=== PATIENT | male | born 1965 | race Asian ===

== ENCOUNTER 2016-04-28 19:08 | Emergency (ER) | payer BC ==
--- NOTE | 2016-04-28 19:29 | ED Physician Chart ---
Chief Complaint/HPI - Patient Information Date Seen:: 04/28/16 Time Seen:: 19:21 Chief Complaint:: SHORTNESS OF BREATH History of Present Illness:: THIS IS A 51 YO MALE WITH 90 DAYS OF COUGH, CHEST CONGESTION AND WAS TREATED FOR PNEUMONIA 10 DAYS AGO AND FINISH ALL THE ANTIBIOTICS(KEFLEX). HE HAS HAD SOME FEVER AND THE CONGESTION HAS CONTINUED WITH SOB. HE DENIES HEART DISEASE AND HYPERTENSION BUT ADMITS TO DIABETES MELLITUS. THE PATIENT ADMITS TO SMOKING BUT DENIES DRUG ABUSE. Historian:: Patient Review:: Nurse's Note Reviewed Review of Systems - Review of Systems General/Constitutional: Fever, No chills, No weight loss, No weakness, No diaphoresis, No edema, No loss of appetite Skin: No skin lesions, No rash, No bruising Head: No headache, No light-headedness Eyes: No loss of vision, No pain, No diplopia ENT: No earache, No nasal drainage, No sore throat, No tinnitus Neck: No neck pain, No swelling, No thyromegaly, No stiffness, No mass noted Cardio Vascular: No chest pain, No palpitations, No PND, No orthopnea, No edema Pulmonary: SOB, Cough, No sputum, Wheezing GI: No nausea, No vomiting, No diarrhea, No pain, No melena, No hematochezia, No constipation, No hematemesis G/U: No dysuria, No frequency, No hematuria Musculoskeletal: No bone or joint pain, No back pain, No muscle pain Endocrine: No polyuria, No polydipsia Psychiatric: No prior psych history, No depression, No anxiety, No suicidal ideation Hematopoietic: No bruising, No lymphadenopathy Allergic/Immuno: No urticaria, No angioedema Neurological: No syncope, No focal symptoms, No weakness, No paresthesia, No headache, No seizure, No dizziness, No confusion, No vertigo Past Medical History - Past Medical History Obtainable: Yes Past Medical History: DM, Asthma/COPD Family History: Diabetes Melitus (FATHER) Social History: Smoker, Alcohol, No Drug Use Surgical History: None Psychiatricy History: None Medication: Reviewed Physical Exam - Physical Examination General/Constitutional: Awake, Well-developed, well-nourished, Alert, No distress, GCS 15, Non-toxic appearing, Ambulatory Head: Atraumatic Eyes: Lids, conjuctiva normal, PERRL, EOMI Skin: Nl inspection, No rash, No skin lesions, No ecchymosis, Well hydrated, No lymphadenopathy ENMT: External ears, nose nl, Nasal exam nl, Lips, teeth, gums nl Neck: Nontender, Full ROM w/o pain, No JVD, No nuchal rigidity, No bruit, No mass, No stridor Respiratory: Nl effort/Exclusion Other Respiratory comments:: BILATERAL PROLONGED END EXPIRATORY RHONCHI AND WHEEZES Cardio Vascular: RRR, No murmur, gallop, rubs, NL S1 S2 GI: No tenderness/rebounding/guarding, No organomegaly, No hernia, Normal BS's, Nondistended, No mass/bruits, No McBurney tenderness : No CVA tenderness Extremities: No tenderness or effusion, Full ROM, normal strength in all extremities, No edema, Normal digits & nails Neuro/Psych: Alert/oriented, DTR's symmetric, Normal sensory exam, Normal motor strength, Judgement/insight normal, Mood normal, Normal gait, No focal deficits Misc: normal gait, Normal back, No paraspinal tenderness ED Septic Shock - . Is Septic Shock (SBP<90, OR Lactate>4 mmol\L) present?: No Reassessment (Disposition) - Aftercare/Follow up Instructions Notes:: THE PATIENT WILL BE CARED FOR BY DR. HODGES STARTING AT 0745 HRS.
[2016-04-28] MEDS ORDERED: Sodium Chloride 0.45% 1,000 ML IV ONE (19:33)
[2016-04-28 19:41] VITALS: BP 128/56
[2016-04-28 19:52] LABS: % BASOPHILS 0.4 % (0.0-2.0); % EOSINOPHILS 1.9 % (0.0-5.0); % LYMPHOCYTES 25.4 % (20.0-50.0); % NEUTROPHILS 59.3 % (40.0-80.0); HEMATOCRIT 41.9 % (39.0-49.0); HEMOGLOBIN 14.1 gm/dL (13.2-17.3); MEAN CELL VOLUME 87.4 fl (80-99); MEAN CORPUSCULAR HEMOGLOBIN 29.5 pg (26.0-30.0); MEAN CORPUSCULAR HGB CONC 33.8 pg (28.0-36.0); MEAN PLATELET VOLUME 7.1 fl; NEUTROPHILE ABSOLUTE 8.3 Th/cmm (1.8-8.0); PLATELET COUNT 427 Th/cmm (150-400); RED BLOOD COUNT 4.79 Mil/cmm (4.30-5.70); RED CELL DISTRIBUTION WIDTH 11.8 % (11.5-20.0); WHITE BLOOD COUNT 14.1 Th/cmm (4.8-10.8)
[2016-04-28 19:59] LABS: INR 0.92 (0.5-1.4); PROTHROMBIN TIME (TEST) 9.6 SECONDS (9.5-11.5)
[2016-04-28 20:03] LABS: ALB/GLOB RATIO 0.9 (1.0-1.8); ALKALINE PHOSPHATASE 88 U/L (34-104); ANION GAP 13.5 (7.0-16.0); BILIRUBIN,TOTAL 0.4 mg/dL (0.3-1.0); BUN - UREA NITROGEN 11 mg/dL (7-25); BUN/CREATININE RATIO 12.2; CALCIUM SERUM 9.7 mg/dL (8.6-10.3); CARBON DIOXIDE 25.2 mEq/L (21.0-31.0); CHLORIDE 97 mEq/L (98-107); CREATININE - SERUM 0.9 mg/dL (0.7-1.3); GLUCOSE 288 mg/dL (70-105); POTASSIUM SERUM 3.7 mEq/L (3.5-5.1); SGOT 33 U/L (13-39); SGPT/ALT 57 U/L (7-52); SODIUM SERUM 132 mEq/L (136-145)
[2016-04-28] MEDS ORDERED: Codeine/Promethazine Susp 5 mL UDC PO STA (20:07)
[2016-04-28] MEDS ORDERED: Codeine/Promethazine Susp 5 mL UDC ONE (20:38)
[2016-04-28] MEDS ORDERED: Albuterol/Ipratropium Neb 3 ML AERS HHN ONE ×2 (21:23→21:32)
--- NOTE | 2016-04-29 10:31 | Diagnostic Imaging Report ---
Portable chest x-ray HISTORY: Cough The overall heart size is difficult to assess portable technique and poor inspiration. No focal pulmonary processes. No hilar or mediastinal abnormalities. Degenerative changes noted in the spine. IMPRESSION: 1. No definite acute focal pulmonary processes 2. Question somewhat generous overall heart size.
== END 2016-04-28 21:38 | disposition home or self-care (01) ==
LOC: ER 19:08
DX: J45.909 Unspecified asthma, uncomplicated (principal); J44.9 Chronic obstructive pulmonary disease, unspecified; E11.9 Type 2 diabetes mellitus without complications; F17.200 Nicotine dependence, unspecified, uncomplicated
CPT/HCPCS: 99285; 96374; 96375; 94640; 71010; 84484; 36415; 83605; 84443; 86592; 85025; 85610; 83036; 80053; 87040 ×2; J1885; J0696; J2930